=== PATIENT | female | born 1950 | race Caucasian/White ===

== ENCOUNTER 2017-01-14 16:22 | Emergency (ER) | payer OTHER ==
[~2017-01-14] VITALS: Ht 154.9 cm; Wt 57.0 kg
[2017-01-14 16:33] VITALS: TEMP 36.5; Ht 154.9 cm; Wt 57.0 kg
[2017-01-14] MEDS ORDERED: ONDANSETRON INJ 2 MG/ML 2 ML VIAL IV STA ×2 (16:46→18:15)
[2017-01-14] MEDS ORDERED: SODIUM CHLORIDE 0.9% 1000ML 1,000 ML IV STA ×2 (16:46→18:38)
--- NOTE | 2017-01-14 16:49 | EMERGENCY ROOM VISIT NOTE ---
History Report prepared by Jeanaibkarla: Sandra Rizo Under the Supervision of: Dr. Rian Hernandez M.D. First contact with patient: 16:32 Chief Complaint: NAUSEA Stated Complaint: SYNCOPE/NAUSEA/VOMITING History of Present Illness The patient is a 66 year old white female with a limited past medical history who presents to the ED with a cc of syncope beginning prior to arrival. The patient states she had several different doctor appointments today. She had blood work this morning then a nuclear medicine appointment for a gallbladder workup. After that, she ate lunch and went to pain management for an appointment early this afternoon where she began to feel dizzy and lightheaded and had a near syncopal episode. Positive nausea, vomiting. Negative recent travel, chest pain, abdominal pain, pain or swelling in her legs. Pain management checked her BSG and it was 132. She admits to a family history of heart disease. The patient takes no daily medications and has no history of previous surgeries. Source of History: patient Onset: [employer] Position: other (global) Quality: other (syncope) Timing: resolved Associated Symptoms: + SOB, + nausea, + vomiting, No chest pain, No abdominal pain Review of Systems See HPI for pertinent positives and negatives. A total of ten systems were reviewed and were otherwise negative. Past Medical & Surgical Medical Problems: (1) Arthritis Family History Heart disease Social History Smoking Status: Former Smoker Alcohol Use: none Drug Use: none Marital Status: Housing Status: lives with family Occupation Status: retired Current/Historical Medications Scheduled Celecoxib (CeleBREX), 1 CAP PO DAILY Cholecalciferol (D3-50), 1 CAP PO WK Ondasetron Odt (Zofran Odt), 4 MG SL Q6H Scheduled PRN Melatonin (Kp Melatonin), 1 TAB PO HS PRN for Sleep Miscellaneous Medications Cyanocobalamin (B12) Allergies Uncoded Allergies: ANESTHIA (Allergy, Unknown, nausea, vomit, 01/14/17) Physical Exam Vital Signs Date Time Temp Pulse Resp B/P (MAP) Pulse Ox O2 Delivery O2 Flow Rate FiO2 01/14/17 21:40 91 16 143/80 95 01/14/17 21:00 92 16 130/79 93 Room Air 01/14/17 19:07 87 16 132/85 96 Room Air 01/14/17 18:30 83 22 148/82 96 Room Air 01/14/17 16:33 36.5 95 22 155/75 100 Room Air Physical Exam GENERAL: Awake, alert, well-appearing, appears uncomfortable HENT: Normocephalic, atraumatic. EYES: Normal conjunctiva. Sclera non-icteric. NECK: Supple. No nuchal rigidity. FROM. RESPIRATORY: Tachypneic on exam, no rhonchi, wheezing, crackles CARDIAC: RRR, no MRG ABDOMEN: Soft, NTND, BS+ MSK: No chest wall TTP, no LE edema NEURO: GCS 15, CN 2-12 intact, moves all 4s on command. PERRL 3 mm bilaterally. EOMI. Post visual acuity intact. 5/5 LE strength. No sensory deficit. Good finger to nose. SKIN: No rash or jaundice noted. Medical Decision & Procedures ER Provider Diagnostic Interpretation: Radiology results as stated below per my review and radiologist interpretation: CHEST ONE VIEW PORTABLE HISTORY: Short of breath. COMPARISON: None. FINDINGS: The lungs are clear. Cardiac silhouette is normal in size. No pleural effusions. No pneumothorax. IMPRESSION: No acute process. Electronically signed by: Arie Dumas M.D. 01/14/2017 5:08 PM Laboratory Results 01/14/17 17:15 Red Blood Count 4.64, Mean Corpuscular Volume 89.4, Mean Corpuscular Hemoglobin 31.7, Mean Corpuscular Hemoglobin Concent 35.4, Mean Platelet Volume 10.4, Neutrophils (%) (Auto) 70.0, Lymphocytes (%) (Auto) 21.9, Monocytes (%) (Auto) 7.0, Eosinophils (%) (Auto) 0.6, Basophils (%) (Auto) 0.3, Neutrophils # (Auto) 6.87, Lymphocytes # (Auto) 2.15, Monocytes # (Auto) 0.69, Eosinophils # (Auto) 0.06, Basophils # (Auto) 0.03 01/14/17 17:15 Test 01/14/17 17:15 01/14/17 17:18 01/14/17 20:10 White Blood Count 9.82 K/uL (4.8-10.8) Red Blood Count 4.64 M/uL (4.2-5.4) Hemoglobin 14.7 g/dL (12.0-16.0) Hematocrit 41.5 % (37-47) Mean Corpuscular Volume 89.4 fL (80-100) Mean Corpuscular Hemoglobin 31.7 pg (25-34) Mean Corpuscular Hemoglobin Concent 35.4 g/dl (32-36) Platelet Count 361 K/uL (130-400) Mean Platelet Volume 10.4 fL (7.4-10.4) Neutrophils (%) (Auto) 70.0 % Lymphocytes (%) (Auto) 21.9 % Monocytes (%) (Auto) 7.0 % Eosinophils (%) (Auto) 0.6 % Basophils (%) (Auto) 0.3 % Neutrophils # (Auto) 6.87 K/uL (1.4-6.5) Lymphocytes # (Auto) 2.15 K/uL (1.2-3.4) Monocytes # (Auto) 0.69 K/uL (0.11-0.59) Eosinophils # (Auto) 0.06 K/uL (0-0.5) Basophils # (Auto) 0.03 K/uL (0-0.2) RDW Standard Deviation 43.0 fL (36.4-46.3) RDW Coefficient of Variation 13.2 % (11.5-14.5) Immature Granulocyte % (Auto) 0.2 % Immature Granulocyte # (Auto) 0.02 K/uL (0.00-0.02) Anion Gap 15.0 mmol/L (3-11) Est Creatinine Clear Calc Drug Dose 42.1 ml/min Estimated GFR () 68.8 Estimated GFR (Non- 59.4 BUN/Creatinine Ratio 14.4 (10-20) Calcium Level 9.6 mg/dl (8.5-10.1) Phosphorus Level 1.2 mg/dl (2.5-4.9) Magnesium Level 2.0 mg/dl (1.8-2.4) Total Bilirubin 0.4 mg/dl (0.2-1) Direct Bilirubin 0.1 mg/dl (0-0.2) Aspartate Amino Transf (AST/SGOT) 20 U/L (15-37) Alanine Aminotransferase (ALT/SGPT) 15 U/L (12-78) Alkaline Phosphatase 65 U/L (45-117) Total Protein 7.7 gm/dl (6.4-8.2) Albumin 4.0 gm/dl (3.4-5.0) Lipase 151 U/L (73-393) Venous Blood pH 7.56 (7.36-7.41) Venous Blood Partial Pressure CO2 25 mmHg (38.0-50.0) Venous Blood Partial Pressure O2 27 mmHg Venous Blood HCO3 22 mmol/L Venous Blood Oxygen Saturation < 60.0 % Venous Blood Base Excess 1.1 mEq/L Bedside Troponin I < 0.030 ng/ml (0-0.045) Laboratory results reviewed by me Medications Administered Medications (Trade) Dose Ordered Sig/Nito Route Start Time Stop Time Status Last Admin Dose Admin Sodium Chloride 1,000 ml @ 999 mls/hr Q1H1M STAT IV 01/14/17 16:46 01/14/17 17:46 DC 01/14/17 17:13 999 MLS/HR Ondansetron HCl (Zofran Inj) 4 mg NOW STAT IV 01/14/17 16:46 01/14/17 16:49 DC 01/14/17 17:13 4 MG Ondansetron HCl (Zofran Inj) 4 mg NOW STAT IV 01/14/17 18:15 01/14/17 18:16 DC 01/14/17 18:20 4 MG Potassium Phosphate 12 mmol/ Sodium Chloride 254 ml @ 127 mls/hr NOW ONCE IV 01/14/17 18:18 01/14/17 20:17 DC 01/14/17 18:45 127 MLS/HR Potassium/ Phosphorus/Sodium (Phospha 250 Neutral 155-852-130 Mg) 2 tab NOW ONCE PO 01/14/17 18:19 01/14/17 18:20 DC 01/14/17 19:06 2 TAB Prochlorperazine Edisylate (Compazine Inj) 10 mg NOW STAT IV 01/14/17 18:37 01/14/17 18:38 DC 01/14/17 18:58 10 MG Sodium Chloride 1,000 ml @ 999 mls/hr Q1H1M STAT IV 01/14/17 18:38 01/14/17 19:38 DC 01/14/17 18:58 999 MLS/HR ECG Indication: syncope Rate (beats per minute): 84 Rhythm: sinus rhythm Findings: other (normal intervals, no STS changes or T-wave inversions) Change: Repeat EKG on 01/14/17: Normal sinus rhythm, rate of 97, normal intervals, normal axis, T-wave flattening interiorly, no other STS changes or T-wave inversions. ED Course 1636: The patient was evaluated in room B3A. A complete history and physical exam was performed. 1834: I reevaluated the patient. She is still feeling nauseous. I will place medication orders. 1904: I reevaluated the patient. She feels much less nauseous after receiving medication. 1934: I reevaluated the patient. She is feeling better and tolerated PO. I will do a repeat EKG and Troponin. I discussed her results so far. The patient still denies any chest pain or shortness of breath. She also reports she does not smoke and has no family history of cardiac . 2139: I reevaluated the patient. She is feeling much better. I discussed her results and discharge instructions and she verbalized complete understanding and agreement. Medical Decision The patient is a 66 year old white female with a limited past medical history who presents to the ED with a cc of syncope beginning prior to arrival. Triage Nursing notes reviewed. The patient's presentation and history were concerning for post procedure nausea , atypical chest pain, ACS, hepatitis, pancreatitis and metabolic abnormality. Patient was evaluated at the bedside. Of note patient was feeling nauseated and was stating that because of her nausea and she felt somewhat short of breath. Patient denied any chest pain. Patient was evaluated further blood work as well as EKG. Patient's lab work was fairly unremarkable with the exception of a low phosphate for which she received replete treatment via IV and by mouth. Patient after fluids and anti-medics is feeling much improved. I spoke with the patient denied any chest pain or shortness of breath and had no further nausea. We discussed that at her age sometimes patients may present with atypical chest pain. However given the schedule of her day which included fasting lack of food and multiple medical appointments this male just been a constellation of symptoms. Patient had a troponin drawn while after the initial insult which was negative. Patient furthermore denies any chest pain. Patient's heart score less than 3 and deemed safe for outpatient follow-up. Patient was given strict follow-up, discharge, and return precautions. Patient agreed with plan of care was safely discharged home in the care of her . Medication Reconcilliation Current Medication List: was personally reviewed by me Blood Pressure Screening Patient's blood pressure: Normal blood pressure Blood pressure disposition: Did not require urgent referral Impression Primary Impression: Nausea Additional Impressions: Dehydration Hypophosphatemia Scribe Attestation The scribe's documentation has been prepared under my direction and personally reviewed by me in its entirety. I confirm that the note above accurately reflects all work, treatment, procedures, and medical decision making performed by me. Departure Information Dispostion Home / Self-Care Prescriptions Ondasetron Odt (ZOFRAN ODT) 4 Mg Tab 4 MG SL Q6H for Nausea, #6 TAB Prov: Rian Hernandez M.D. 01/14/17 Patient Instructions ED Nausea Vomiting, My [facility], Phosphorus Additional Instructions Please return to the emergency department if you have worsening or recurrent symptoms not amenable to at-home treatment. Please call for a follow-up appointment with her primary care physician. Please take your medications as prescribed. If you have other concerns and/or complaints please feel free to also call your primary care physician's office or return the ED for further evaluation, management, and treatment. Problem Qualifiers
--- NOTE | 2017-01-14 17:09 | DIAGNOSTIC IMAGING REPORT ---
CHEST ONE VIEW PORTABLE HISTORY: Short of breath. COMPARISON: None. FINDINGS: The lungs are clear. Cardiac silhouette is normal in size. No pleural effusions. No pneumothorax. IMPRESSION: No acute process. Electronically signed by: Arie Dumas M.D. 01/14/2017 5:08 PM Dictated Date/Time: 01/14/2017 5:06 PM
[2017-01-14] MEDS ORDERED: CLB/200 PO (17:20)
[2017-01-14] MEDS ORDERED: CHOLCAP2 PO (17:20)
[2017-01-14] MEDS ORDERED: MELA1TAB5 PO (17:20)
[2017-01-14] MEDS ORDERED: CYAN100073 (17:20)
[2017-01-14 17:28] LABS: VEN BLD GAS O2 SATURATION < 60.0 %; VEN BLOOD GAS BASE EXCESS 1.1 mEq/L; VENOUS BLOOD GAS PCO2 25 mmHg (38.0-50.0); VENOUS BLOOD GAS PO2 27 mmHg
[2017-01-14 17:50] LABS: BASO % 0.3 %; BASO ABS # 0.03 K/uL (0-0.2); COMPLETE YES; EOS % 0.6 %; HEMATOCRIT 41.5 % (37-47); IG% 0.2 %; LYMPH % 21.9 %; LYMPH ABS # 2.15 K/uL (1.2-3.4); MEAN CELL VOLUME 89.4 fL (80-100); MEAN CORPUSCULAR HEMOGLOBIN 31.7 pg (25-34); MEAN CORPUSCULAR HGB CONC 35.4 g/dl (32-36); MEAN PLATELET VOLUME 10.4 fL (7.4-10.4); PLATELET COUNT 361 K/uL (130-400); RED BLOOD COUNT 4.64 M/uL (4.2-5.4); WHITE BLOOD COUNT 9.82 K/uL (4.8-10.8)
[2017-01-14 17:58] LABS: BUN/CREATININE RATIO 14.4 (10-20); CALCIUM 9.6 mg/dl (8.5-10.1); CREATININE 0.99 mg/dl (0.60-1.20); POTASSIUM 3.5 mmol/L (3.5-5.1)
[2017-01-14 18:09] LABS: PHOSPHORUS 1.2 mg/dl (2.5-4.9)
[2017-01-14] MEDS ORDERED: POTASSIUM PHOSPHATE INJ 12 MMOL in SODIUM CHLORIDE 0.9% 250ML 250 ML IV ONE (18:18)
[2017-01-14] MEDS ORDERED: POT PHOSPHATE MONOBASIC W/ SOD TAB PO ONE (18:19)
[2017-01-14] MEDS ORDERED: PROCHLORPERAZINE 5 MG/ML 2 ML VIAL IV STA (18:37)
[2017-01-14] MEDS ORDERED: ONDA4TAB10 SL (21:39)
[2017-01-14 21:40] VITALS: BP 143/80; PULSE 91; O2SAT 95
== END 2017-01-14 21:45 | disposition home or self-care (01) ==
LOC: EDBD 16:22 → C.EDB 16:27
DX: E86.0 Dehydration (principal); R11.0 Nausea; E83.39 Other disorders of phosphorus metabolism; M19.90 Unspecified osteoarthritis, unspecified site; Z87.891 Personal history of nicotine dependence; Z79.899 Other long term (current) drug therapy; Z88.8 Allergy status to other drugs, medicaments and biological substances; Z82.49 Family history of ischemic heart disease and other diseases of the circulatory system